=== PATIENT | female | born 1970 | race Asian ===

== ENCOUNTER 2017-01-03 04:48 | Emergency (ER) | payer OTHER ==
[2017-01-03 05:30] LABS: BASOPHILS # (AUTO) 0.1 10^3/uL (0.0-0.1); BASOPHILS % (AUTO) 0.7 %; EOSINOPHILS # (AUTO) 0.1 10^3/uL (0.0-0.7); EOSINOPHILS % (AUTO) 1.1 %; HCT - HEMATOCRIT 38.3 % (37.0-47.0); HGB - HEMOGLOBIN 13.1 g/dL (12.0-16.0); LYMPHOCYTES # (AUTO) 2.5 10^3/uL (1.5-3.5); LYMPHOCYTES % (AUTO) 29.5 %; MEAN CORPUSCULAR HEMOGLOBIN 31.4 pg (27.0-31.0); MEAN CORPUSCULAR HGB CONC 34.2 g/dL (32.0-36.0); MEAN CORPUSCULAR VOLUME 91.9 fL (81.0-99.0); MEAN PLATELET VOLUME 7.2 fL (7.9-10.8); MONOCYTES # (AUTO) 0.5 10^3/uL (0.0-1.0); MONOCYTES % (AUTO) 6.5 %; NEUTROPHILS # (AUTO) 5.3 10^3/uL (1.5-6.6); NEUTROPHILS % (AUTO) 62.2 %; NUCLEATED RED BLOOD CELLS AUTO 0.1 /100WBC; RED BLOOD COUNT 4.16 10^6/uL (4.20-5.40); RED CELL DISTRIBUTION WIDTH 13.7 % (12.0-15.0); UNCORRECTED WHITE BLOOD COUNT 8.5 x10^3/uL; WHITE BLOOD COUNT 8.5 x10^3/uL (4.8-10.8)
--- NOTE | 2017-01-03 05:39 | XRAY Preliminary Report ---
Exam: XR Chest 1 View IMPRESSION: 1. No acute abnormality seen in the chest. [facility] SITE ID: [id number]
--- NOTE | 2017-01-03 05:42 | XRAY Report ---
EXAM: CHEST RADIOGRAPHY EXAM DATE: 01/03/2017 05:34 AM. CLINICAL HISTORY: Dizziness and shortness of breath. History of asthma. COMPARISON: None. TECHNIQUE: 1 view. FINDINGS: Lungs/Pleura: No alveolar consolidation or pleural effusion. No pneumothorax. Mediastinum: Within exam limitations, cardiomediastinal contour is normal. Other: None. IMPRESSION: 1. No acute abnormality seen in the chest. [facility] Referring Provider Line: [phone] SITE ID: [id number]
[2017-01-03 05:47] LABS: ALBUMIN/GLOBULIN RATIO 1.4 (1.0-2.2); BILIRUBIN,TOTAL 0.7 mg/dL (0.2-1.0); CALCIUM 9.3 mg/dL (8.5-10.3); CREATININE 0.6 mg/dL (0.4-1.0); POTASSIUM 3.1 mmol/L (3.5-5.0); TOTAL PROTEIN 6.9 g/dL (6.7-8.2)
[2017-01-03 06:07] LABS: BILIRUBIN,URINE NEGATIVE (NEGATIVE)
[2017-01-03 06:12] LABS: UA CHARGE (STRIP ONLY) YES; UR CULTURE IF IND NOT INDICATED
--- NOTE | 2017-01-03 06:13 | ED Physician Documentation ---
PD HPI DYSPNEA - Stated complaint Stated Complaint: SOA,DIZZINESS - Chief complaint Chief Complaint: Resp - History obtained from History obtained from: Patient, Family - History of Present Illness Timing - onset: How many hours ago (2) Timing - onset during: Rest Timing - details: Abrupt onset, Still present Worsened by: Exertion Associated symptoms: No: Fever, Cough, Wheezing, Chest pain / discomfort Similar symptoms before: Has not had sx before Recently seen: Not recently seen - Additional information Additional information: Patient is a 46 year old female with no significant history who is presenting to the emergency department for shortness of breath. Patient and stated that the patient woke up from sleep short of breath and not feeling well so the patient came to the emergency department for evaluation. Review of Systems Constitutional: reports: Chills. denies: Fever, Myalgias Eyes: denies: Loss of vision, Decreased vision Ears: denies: Ear pain, Drainage/discharge Nose: denies: Rhinorrhea / runny nose, Congestion, Sinus pressure / pain Throat: denies: Sore throat Cardiac: denies: Chest pain / pressure, Palpitations, Calf pain Respiratory: reports: Dyspnea, Cough. denies: Wheezing GI: denies: Abdominal Pain, Nausea, Vomiting : denies: Dysuria, Frequency, Hesitancy, Hematuria Skin: denies: Rash, Lesions, Abrasion (s) Musculoskeletal: denies: Neck pain, Back pain, Extremity pain, Joint pain Neurologic: denies: Generalized weakness, Focal weakness, Numbness Immunocompromised: denies: Immunocompromised PD PAST MEDICAL HISTORY - Past Medical History Past Medical History: Yes Respiratory: Asthma - Present Medications Home Medications: Ambulatory Orders Medication Instructions Recorded Confirmed Albuterol 2 puffs PO BID 01/03/17 01/03/17 Albuterol Sulfate [Proair Hfa 1 puffs PO PRN 01/03/17 Inhaler] - Allergies Allergies/Adverse Reactions: Allergies Allergy/AdvReac Type Severity Reaction Status Date / Time No Known Drug Allergies Allergy Verified 01/03/17 04:58 - Social History Does the pt smoke?: No Smoking Status: Never smoker PD ED PE NORMAL - Vitals Vital signs reviewed: Yes - General General: Alert and oriented X 3, Well developed/nourished - HEENT HEENT: Atraumatic, PERRL, Pharynx benign - Neck Neck: Supple, no meningeal sign, No JVD - Cardiac Cardiac: RRR, No murmur - Respiratory Respiratory: No respiratory distress, Clear bilaterally - Abdomen Abdomen: Soft, Non tender, Non distended - Back Back: No CVA TTP - Derm Derm: Normal color, Warm and dry, No rash - Extremities Extremities: No deformity, No tenderness to palpate, Normal ROM s pain - Neuro Neuro: Alert and oriented X 3, health information managers 2-12 intact, No motor deficit, No sensory deficit, Normal speech - Psych Psych: Normal mood, Normal affect PD ED PE EXPANDED - HEENT HEENT: Dry mucous membranes Results - Vitals Vitals: Vital Signs - 24 hr 01/03/17 01/03/17 04:55 05:44 Temperature 36.2 C L Heart Rate 94 64 Respiratory 22 20 Rate Blood Pressure 149/79 H 119/51 L O2 Saturation 100 100 Oxygen O2 Source Room air - EKG (time done) 0531 Rate: Rate (enter#) (84) Rhythm: NSR [place]: Normal Intervals: Prolonged UT QRS: Normal, LVH Ischemia: Normal ST segments Compare to prior EKG: Old EKG unavailable - Labs Labs: Laboratory Tests 01/03/17 01/03/17 01/03/17 05:20 05:20 05:20 WBC 8.5 RBC 4.16 L Hgb 13.1 Hct 38.3 MCV 91.9 MCH 31.4 H MCHC 34.2 RDW 13.7 Plt Count 288 MPV 7.2 L Neut # 5.3 Lymph # 2.5 [place] # 0.5 Eos # 0.1 Baso # 0.1 Absolute Nucleated RBC 0.01 Nucleated RBCs 0.1 D-Dimer Sodium 138 Potassium 3.1 L Chloride 105 Carbon Dioxide 24 Anion Gap 9.0 BUN 12 Creatinine 0.6 Estimated GFR (MDRD) 107 Glucose 101 H Calcium 9.3 Total Bilirubin 0.7 AST 26 ALT 29 Alkaline Phosphatase 44 Troponin I < 0.04 B-Natriuretic Peptide Total Protein 6.9 Albumin 4.0 Globulin 2.9 Albumin/Globulin Ratio 1.4 Lipase 36 TSH Urine Color Urine Clarity Urine pH Ur Specific [place] Urine Protein Urine Glucose (UA) Urine Ketones Urine Occult Blood Urine Nitrite Urine Bilirubin Urine Urobilinogen Ur Leukocyte Esterase Ur Microscopic Review Urine Culture Comments 01/03/17 01/03/17 01/03/17 05:20 05:20 05:20 WBC RBC Hgb Hct MCV MCH MCHC RDW Plt Count MPV Neut # Lymph # [place] # Eos # Baso # Absolute Nucleated RBC Nucleated RBCs D-Dimer < 200.0 L Sodium Potassium Chloride Carbon Dioxide Anion Gap BUN Creatinine Estimated GFR (MDRD) Glucose Calcium Total Bilirubin AST ALT Alkaline Phosphatase Troponin I B-Natriuretic Peptide 19 Total Protein Albumin Globulin Albumin/Globulin Ratio Lipase TSH 2.17 Urine Color Urine Clarity Urine pH Ur Specific [place] Urine Protein Urine Glucose (UA) Urine Ketones Urine Occult Blood Urine Nitrite Urine Bilirubin Urine Urobilinogen Ur Leukocyte Esterase Ur Microscopic Review Urine Culture Comments 01/03/17 05:40 WBC RBC Hgb Hct MCV MCH MCHC RDW Plt Count MPV Neut # Lymph # [place] # Eos # Baso # Absolute Nucleated RBC Nucleated RBCs D-Dimer Sodium Potassium Chloride Carbon Dioxide Anion Gap BUN Creatinine Estimated GFR (MDRD) Glucose Calcium Total Bilirubin AST ALT Alkaline Phosphatase Troponin I B-Natriuretic Peptide Total Protein Albumin Globulin Albumin/Globulin Ratio Lipase TSH Urine Color YELLOW Urine Clarity CLEAR Urine pH 8.0 H Ur Specific [place] 1.010 Urine Protein NEGATIVE Urine Glucose (UA) NEGATIVE Urine Ketones NEGATIVE Urine Occult Blood NEGATIVE Urine Nitrite NEGATIVE Urine Bilirubin NEGATIVE Urine Urobilinogen 0.2 (NORMAL) Ur Leukocyte Esterase NEGATIVE Ur Microscopic Review NOT INDICATED Urine Culture Comments NOT INDICATED - Rads (name of study) chest Radiology: Final report received (no acute disease process) PD MEDICAL DECISION MAKING - ED course Complexity details: reviewed old records, reviewed results, re-evaluated patient , considered differential, d/w patient, d/w family ED course: Patient was seen and examined at bedside. ekg was performed and was within normal limits. IV access was gained and labs were drawn. chest x-ray was performed and was also within normal limits. Patient's potassium was replenished. Patient had a follow up appointment for later in the afternoon. Patient required no further work up at this time and was stable for discharge with outpatient follow up. Departure - Departure Disposition: 01 Home, Self Care Clinical Impression: Dyspnea Condition: Good Instructions: ED Dyspnea Shortness of Breath Follow-Up: Dave Lee PA-C [Primary Care Provider] - (today, follow up for shortness of breath, schedule echocardiogram) Comments: Your diagnostics today were within normal limits. It is difficult to say what is causing your pain exactly but it is less likely to be cardiac or pulmonary in nature. You might be starting to come down with something. You should follow up with your pmd today. You should return to the emergency department for chest pain, shortness of breath, new, worsening or uncontrollable symptoms.
[2017-01-03] MEDS ORDERED: POTASSIUM CHLORIDE 20 MEQ TABLET PO STA (06:30)
[2017-01-03] MEDS ORDERED: POTASSIUM CHLORIDE 20 MEQ TABLET PO ONE (06:44)
[2017-01-03 06:50] VITALS: BP 116/95
== END 2017-01-03 06:49 | disposition home or self-care (01) ==
LOC: ED 04:48
DX: R06.02 Shortness of breath (principal); J45.909 Unspecified asthma, uncomplicated
CPT/HCPCS: 36415; 71010; 80053; 81003; 83690; 83880; 84443; 84484; 85025; 85379; 93005; 93010; 99284; A9270; 81001; 87086

== ENCOUNTER 2017-01-16 13:46 | Outpatient (CLI) | payer OTHER | END 2017-01-16 13:47 | disposition home or self-care (01) | LOC: DI 13:46 | PROVIDERS: ATTEND Registered Nurse Diabetes Educator | DX: R06.00 Dyspnea, unspecified (principal) | CPT/HCPCS: 93306 ==